=== PATIENT | female | born 1940 | race Caucasian/White ===

== ENCOUNTER 2020-04-12 05:59 | Day surgery (SDC) | payer MEDICARE ==
[2020-04-05 15:28] LABS: BASOPHILS % (AUTO) 0.7 % (0-1); EOSINOPHILS # (AUTO) 0.1 X10'3 (0-0.9); EOSINOPHILS % (AUTO) 2.3 % (0-6); LYMPHOCYTES # (AUTO) 1.8 X10'3 (1.1-4.8); LYMPHOCYTES % (AUTO) 32.9 % (21-51); MEAN CORPUSCULAR HEMOGLOBIN 30.6 PG (27.0-31.0); MEAN CORPUSCULAR HGB CONC 32.8 g/dL (33.0-36.5); MEAN CORPUSCULAR VOLUME 93.2 FL (78-98); MEAN PLATELET VOLUME 7.8 FL (7.4-10.4); MONOCYTES # (AUTO) 0.4 X10'3 (0-0.9); MONOCYTES % (AUTO) 7.2 % (2-12); NEUTROPHILS # (AUTO) 3.1 X10'3 (1.8-7.7); NEUTROPHILS % (AUTO) 56.9 % (42-75); PRE OP HEMATOCRIT 38.2 % (35.0-45.0); PRE OP HEMOGLOBIN 12.5 g/dL (12.0-16.0); PRE OP PLATELET COUNT 318 X10'3 (140-440); RED CELL DISTRIBUTION WIDTH 14.2 % (11.5-14.5)
[2020-04-05 15:40] LABS: ALBUMIN 3.5 G/DL (3.4-5.0); ALBUMIN/GLOBULIN RATIO 1.1 (1.1-1.5); ALKALINE PHOSPHATASE 68 IU/L (46-116); BLOOD UREA NITROGEN 13 MG/DL (7-18); BUN/CREATININE RATIO 21.3 (6.6-38.0); CALCIUM 8.4 MG/DL (8.5-10.1); CHLORIDE 105 MMOL/L (99-107); CREATININE 0.61 MG/DL (0.40-0.90); PRE OP ALT 21 U/L (30-65); PRE OP ANION GAP 3 (8-16); PRE OP AST 11 U/L (10-37); PRE OP BILIRUB, TOTAL 0.3 MG/DL (0.0-1.0); PRE OP GLUCOSE 81 MG/DL (70-104); PRE OP POTASSIUM 3.8 MMOL/L (3.4-5.1); PRE OP SODIUM 140 MMOL/L (135-145); TOTAL CARBON DIOXIDE 31.9 MMOL/L (24-32); TOTAL PROTEIN 6.7 G/DL (6.4-8.2); eGFR > 90 ML/MIN
[~2020-04-12] VITALS: Ht 152.4 cm; Wt 47.6 kg
[~2020-04-12 05:59] MED LIST: AREDS; ASCO-157 PO; ATOR10TA PO; LISI-600 PO; MULT-1085 PO; famotidine 20mg tablet PO ONE; ringers solution, lacted 1,000 ML IV SCH
[2020-04-12] MEDS ORDERED: cefazolin/dext.iso 2gm/50ml 50 ML IV ONE (06:00)
[2020-04-12 06:10] VITALS: BP 156/76
[2020-04-12] MEDS ORDERED: LIDOcaine 1% (10mg/ml) 2ml vial ONE (06:21)
[2020-04-12] MEDS ORDERED: BUPIVAcaine/PF 2.5mg/ml (0.25%) 10ml vial ONE (06:35)
[2020-04-12] MEDS ORDERED: LIDOcaine 0.5% (5mg/ml) 50ml vial ONE (07:34)
[2020-04-12] MEDS ORDERED: midazolam 2 mg/2 ml injection ONE (07:43)
[2020-04-12] MEDS ORDERED: fentaNYL/PF 50MCG/1 ML 2ML syringe ONE (07:43)
--- NOTE | 2020-04-12 08:25 | NUR ---
ADMITTED TO PACU FROM OR ACCOMPANIED BY ANESTHESIA. INTIAL PHYSICAL ASSESSMENT DONE AND RECORDED. REPORT RECEIVED FROM ANESTHESIA.
[2020-04-12 08:32] VITALS: BP 150/65
[2020-04-12 08:40] VITALS: BP 149/70
--- NOTE | 2020-04-12 09:00 | NUR ---
DISCHARGE CRITERIA MET, DISCHARGE INSTRUCTIONS GIVEN, DEMONSTRATES VERBAL UNDERSTANDING. DISCHARGED HOME IN GOOD CONDITION.
== END 2020-04-12 09:00 | disposition home or self-care (01) ==
LOC: PAS 05:59
PROVIDERS: ATTEND Orthopaedic Surgery Hand Surgery
DX: G56.01 Carpal tunnel syndrome, right upper limb (principal); M18.0 Bilateral primary osteoarthritis of first carpometacarpal joints; E78.00 Pure hypercholesterolemia, unspecified; I10 Essential (primary) hypertension; Z98.890 Other specified postprocedural states; Z72.89 Other problems related to lifestyle; Z79.899 Other long term (current) drug therapy; Z88.2 Allergy status to sulfonamides; Z88.6 Allergy status to analgesic agent; Z86.73 Personal history of transient ischemic attack (TIA), and cerebral infarction without residual deficits
CPT/HCPCS: 36415; 64721; 80053; 82948; 85025; 87635; 93005; J2001; J2250; J3010; J3490; J7120; A4215

== ENCOUNTER 2020-10-11 08:07 | Day surgery (SDC) | payer MEDICARE ==
[2020-10-03 15:29] LABS: BASOPHILS % (AUTO) 0.7 % (0-1); EOSINOPHILS # (AUTO) 0.2 X10'3 (0-0.9); EOSINOPHILS % (AUTO) 2.8 % (0-6); LYMPHOCYTES % (AUTO) 32.4 % (21-51); MEAN CORPUSCULAR HEMOGLOBIN 30.9 PG (27.0-31.0); MEAN CORPUSCULAR HGB CONC 33.4 g/dL (33.0-36.5); MEAN CORPUSCULAR VOLUME 92.7 FL (78-98); MONOCYTES # (AUTO) 0.5 X10'3 (0-0.9); MONOCYTES % (AUTO) 7.6 % (2-12); NEUTROPHILS # (AUTO) 3.5 X10'3 (1.8-7.7); NEUTROPHILS % (AUTO) 56.5 % (42-75); PRE OP HEMATOCRIT 37.1 % (35.0-45.0); PRE OP HEMOGLOBIN 12.4 g/dL (12.0-16.0); PRE OP PLATELET COUNT 375 X10'3 (140-440); RED CELL DISTRIBUTION WIDTH 13.8 % (11.5-14.5)
[2020-10-03 15:54] LABS: ALBUMIN 3.7 G/DL (3.4-5.0); ALBUMIN/GLOBULIN RATIO 1.1 (1.1-1.5); ALKALINE PHOSPHATASE 70 IU/L (46-116); BLOOD UREA NITROGEN 13 MG/DL (7-18); BUN/CREATININE RATIO 25.5 (6.6-38.0); CHLORIDE 104 MMOL/L (99-107); CREATININE 0.51 MG/DL (0.40-0.90); PRE OP ALT 25 U/L (30-65); PRE OP ANION GAP 7 (8-16); PRE OP AST 16 U/L (10-37); PRE OP BILIRUB, TOTAL 0.4 MG/DL (0.0-1.0); PRE OP GLUCOSE 96 MG/DL (70-104); PRE OP POTASSIUM 3.8 MMOL/L (3.4-5.1); PRE OP SODIUM 140 MMOL/L (135-145); TOTAL CARBON DIOXIDE 28.8 MMOL/L (24-32); eGFR > 90 ML/MIN
[~2020-10-11] VITALS: Ht 152.4 cm; Wt 48.3 kg
[~2020-10-11 08:07] MED LIST changes: +BUPIVAcaine/PF 2.5mg/ml (0.25%) 10ml vial ONE; +LIDOcaine 1% 30ml preserv. free vial ONE; -LISI-600 PO; +LISI20TA28 PO; +ceFAZolin 2gm in dextrose, iso 50 ML IV ONE
[2020-10-11 08:20] VITALS: BP 148/69
[2020-10-11] MEDS ORDERED: fentaNYL/PF 50MCG/1 ML 2ML syringe ONE (09:42)
[2020-10-11] MEDS ORDERED: ketorolac trometh. 30mg/ml inj. ONE (09:43)
[2020-10-11] MEDS ORDERED: midazolam 1 mg/ML 2ml injection ONE (09:43)
[2020-10-11] MEDS ORDERED: sevoflurane 250ml liquid IH ONE (10:00)
[2020-10-11] MEDS ORDERED: LIDOcaine 1%/PF 5ML 10 MG/ML VIAL ONE ×2 (10:21)
[2020-10-11 10:43] VITALS: BP 156/70
--- NOTE | 2020-10-11 10:45 | NUR ---
[facility], accompanied by Anesthesiologist and report given by Anesthesiologist. PATIENT IS LAYING ON GURNEY, DENIES PAIN, PIV ON LEFT WRIST 20G, LR RUNNING, SLEEPY, AWAKE TO VOICE, RIGHT HAND WITH DRESSING AND WRAP, CDI, PATIENT IS ABLE TO MOVE RIGHT FINGERS, WARM TO TOUCH, CAP REFILL 2-3 SEC ON RIGHT FINGERS, WILL MONITOR. Addendum: 10/11/20 at 1054 by Daphne Casas RN Amended: Links added.
[2020-10-11 10:50] VITALS: BP 152/72
[2020-10-11 11:00] VITALS: BP 150/72
[2020-10-11 11:10] VITALS: BP 143/73
[2020-10-11 11:20] VITALS: BP 142/67
--- NOTE | 2020-10-11 11:23 | NUR ---
PATIENT IS AWAKE AND ALERT, NO DISTRESS AND DENIES PAIN, PIV DC'D FROM LEFT WRIST 20G CATHETER INTACT, DRESSING AND WRAP ON RIGHT HAND CDI, PATIENT IS ABLE TO MOVE HER OTHER FINGERS BESIDES MIDDLE FINGERS, ALL FINGERS ON RIGHT HAND WARM TO TOUCH, CAP REFILL 2-3 SEC, A[place], ICE ON RIGHT HAND, DISCHARGE INSTRUCTIONS GIVEN, PATIENT VERBALIZED UNDERSTANDING. PATIENT WAS TRANSFERRED TO PRIVATE VEHICLE TO HER ON WHEELCHAIR WITH NO INCIDENT. Addendum: 10/11/20 at 1141 by Daphne Casas RN Amended: Links added.
== END 2020-10-11 11:23 | disposition home or self-care (01) ==
LOC: PAS 08:07
PROVIDERS: ATTEND Orthopaedic Surgery Hand Surgery
DX: S66.312A Strain of extensor muscle, fascia and tendon of right middle finger at wrist and hand level, initial encounter (principal); M18.0 Bilateral primary osteoarthritis of first carpometacarpal joints; Z79.899 Other long term (current) drug therapy; Z98.890 Other specified postprocedural states; Z72.89 Other problems related to lifestyle; Z88.2 Allergy status to sulfonamides; X58.XXXA Exposure to other specified factors, initial encounter; Y93.89 Activity, other specified; Y92.89 Other specified places as the place of occurrence of the external cause; Y99.8 Other external cause status
CPT/HCPCS: 26437; 36415; 80053; 82948; 85025; A6222; J1885; J2001; J2250; J3010; J3490; A4215; A4615; J7120

== ENCOUNTER 2022-11-19 14:36 | Outpatient (CLI) | payer MEDICARE ==
[~2022-11-19 14:36] MED LIST changes: -BUPIVAcaine/PF 2.5mg/ml (0.25%) 10ml vial ONE; -LIDOcaine 1% 30ml preserv. free vial ONE; -ceFAZolin 2gm in dextrose, iso 50 ML IV ONE; -famotidine 20mg tablet PO ONE; -ringers solution, lacted 1,000 ML IV SCH
== END 2022-11-19 23:59 | disposition home or self-care (01) ==
LOC: RAD 14:36
PROVIDERS: ATTEND Family Medicine
DX: M47.812 Spondylosis without myelopathy or radiculopathy, cervical region (principal); M48.02 Spinal stenosis, cervical region; M25.78 Osteophyte, vertebrae; M48.52XA Collapsed vertebra, not elsewhere classified, cervical region, initial encounter for fracture
CPT/HCPCS: 72141